=== PATIENT | male | born 1985 | race African-American/Black ===

== ENCOUNTER 2018-10-01 09:26 | Inpatient (IN) | payer MEDICAID ==
[2018-10-01] VITALS (7 sets, daily range): BP systolic 102–146; BP diastolic 40–88
[~2018-10-01] VITALS: Ht 193 cm; Wt 108.9 kg
[2018-10-01] MEDS ORDERED: NKM (09:39)
[2018-10-01] MEDS ORDERED: Ipratropium 0.02% Inh Soln 2.5ml UD HHN ONE (09:45)
[2018-10-01] MEDS ORDERED: Solu-MEDROL 125mg Inj IVP ONE (09:45)
[2018-10-01] MEDS: Albuterol ud Inhalation HHN SCH ×4 (09:52→17:07)
[2018-10-01 10:07] LABS: BASOPHILS % (AUTO) 2.1 % (0.0-2.0); EOSINOPHILS % (AUTO) 0.9 % (0.0-3.0); HEMATOCRIT 40.9 % (42.0-52.0); HEMOGLOBIN 13.8 G/DL (14.2-18.0); LYMPHOCYTES % (AUTO) 7.3 % (20.0-45.0); MEAN CORPUSCULAR VOLUME 89 FL (80-99); NEUTROPHILS % (AUTO) 80.7 % (45.0-75.0); PLATELET COUNT 280 K/UL (150-450); RED CELL DISTRIBUTION WIDTH 10.2 % (11.6-14.8); WHITE BLOOD COUNT 11.4 K/UL (4.8-10.8)
[2018-10-01 10:20] LABS: ANION GAP 8 mmol/L (5-15); BLOOD UREA NITROGEN 14 mg/dL (7-18); CALCIUM 9.2 MG/DL (8.5-10.1); CARBON DIOXIDE 27 MMOL/L (21-32); CHLORIDE 102 MMOL/L (98-107); CREATININE 1.3 MG/DL (0.55-1.30); POTASSIUM 3.7 MMOL/L (3.5-5.1); SODIUM 137 MMOL/L (136-145)
[2018-10-01 10:31] LABS: ALANINE AMINOTRANSFERASE 25 U/L (12-78); ALBUMIN 3.7 G/DL (3.4-5.0); ALBUMIN/GLOBULIN RATIO 0.9 (1.0-2.7); ALKALINE PHOSPHATASE 63 U/L (46-116); ASPARTATE AMINO TRANSFERASE 24 U/L (15-37); BILIRUBIN,TOTAL 0.8 MG/DL (0.2-1.0); CREATINE KINASE 211 U/L (26-308)
--- NOTE | 2018-10-01 10:31 | Diagnostic Imaging Report ---
Indication: Dyspnea Technique: One view of the chest Comparison: none Findings: Lungs and pleural spaces are clear. Heart size is upper limits normal Impression: No acute process
[2018-10-01 11:15] LABS: APPEARANCE,URINE CLEAR; BILIRUBIN, URINE NEGATIVE (NEGATIVE); COLOR,URINE PALE YELLOW; GLUCOSE, URINE (UA) NEGATIVE (NEGATIVE); KETONES,URINE NEGATIVE (NEGATIVE); LEUKOCYTE ESTERASE ,URINE NEGATIVE (NEGATIVE); NITRITE,URINE NEGATIVE (NEGATIVE); PH,URINE 6 (4.5-8.0); PROTEIN,URINE NEGATIVE (NEGATIVE); UROBILINOGEN,URINE NORMAL MG/DL (0.0-1.0)
[2018-10-01] MEDS ORDERED: Albuterol ud Inhalation HHN ONE (12:00)
--- NOTE | 2018-10-01 12:01 | Emergency Room Report ---
History of Present Illness General Chief Complaint: Asthma Source: Patient Present Illness HPI Patient presents with several days of shortness of breath and wheezing. He has a history of asthma. This is not his work at worst attack. He does not have her inhaler at this time. He's felt feverish and has some chest pain but denies any chills or documented fever. He's felt nauseated but is been able to keep food down liquids. He's had prednisone in the past. He's never been intubated. He's coughing up some yellow phlegm. Pain rated 0/10. No rashes, headache, abdominal pain, dysuria, depression, bleeding problems, joint pain, diabetes. Allergies: Coded Allergies: PENICILLINS (Verified Allergy, Unknown, swelling, sob, 10/01/18) Patient History Past Medical History: see triage record Social History: Reports: smoking Social History Narrative works for [employer]/vet Reviewed Nursing Documentation: PMH: Agreed; PSxH: Agreed Nursing Documentation-PMH Past Medical History: No History, Except For Hx Asthma: Yes Review of Systems All Other Systems: negative except mentioned in HPI Physical Exam Vital Signs Date Time Temp Pulse Resp B/P (MAP) Pulse Ox O2 Delivery O2 Flow Rate FiO2 10/01/18 09:34 99.7 97 23 146/88 95 Room Air 10/01/18 10:01 21 10/01/18 10:15 21.0 Sp02 EP Interpretation: reviewed, abnormal - low as interpreted by me General Appearance: well appearing, no apparent distress Head: normocephalic Eyes: bilateral eye normal inspection, bilateral eye PERRL ENT: moist mucus membranes Neck: supple Respiratory: wheezing, expiration, inspiration Cardiovascular #1: regular rate, rhythm Cardiovascular #2: 2+ radial (R) Gastrointestinal: normal inspection, normal bowel sounds, non tender, no mass, non-distended Musculoskeletal: back normal, gait/station normal, normal range of motion Neurologic: alert, oriented x3, grossly normal Psychiatric: mood/affect normal Skin: normal inspection, warm/dry Medical Decision Making Diagnostic Impression: Primary Impression: Status asthmaticus Qualified Codes: J45.52 - Severe persistent asthma with status asthmaticus ER Course Patient presents with wheezing with h/o asthma. DDX: PNA, asthma, bronchitis amongst others. Evaluation with CXR and labs. Treatment with solu-medrol, breathing treatments and IV hydration. Cardiac monitoring. EKG without injury. CXR no infiltrates. Labs with slightly high WBC and low magnesium. Some improvement, but still with hypoxia. Able to rest. Still wheezing and sats 91%. Adding magnesium and repeat breathing tx. Admit tele. Laboratory Tests Test 10/01/18 09:50 10/01/18 11:00 White Blood Count 11.4 K/UL (4.8-10.8) H Red Blood Count 4.60 M/UL (4.70-6.10) L Hemoglobin 13.8 G/DL (14.2-18.0) L Hematocrit 40.9 % (42.0-52.0) L Mean Corpuscular Volume 89 FL (80-99) Mean Corpuscular Hemoglobin 30.0 PG (27.0-31.0) Mean Corpuscular Hemoglobin Concent 33.9 G/DL (32.0-36.0) Red Cell Distribution Width 10.2 % (11.6-14.8) L Platelet Count 280 K/UL (150-450) Mean Platelet Volume 8.1 FL (6.5-10.1) Neutrophils (%) (Auto) 80.7 % (45.0-75.0) H Lymphocytes (%) (Auto) 7.3 % (20.0-45.0) L Monocytes (%) (Auto) 9.0 % (1.0-10.0) Eosinophils (%) (Auto) 0.9 % (0.0-3.0) Basophils (%) (Auto) 2.1 % (0.0-2.0) H Sodium Level 137 MMOL/L (136-145) Potassium Level 3.7 MMOL/L (3.5-5.1) Chloride Level 102 MMOL/L (98-107) Carbon Dioxide Level 27 MMOL/L (21-32) Anion Gap 8 mmol/L (5-15) Blood Urea Nitrogen 14 mg/dL (7-18) Creatinine 1.3 MG/DL (0.55-1.30) Estimate Glomerular Filtration Rate > 60 mL/min (>60) Glucose Level 89 MG/DL (74-106) Calcium Level 9.2 MG/DL (8.5-10.1) Magnesium Level 1.5 MG/DL (1.8-2.4) L Total Bilirubin 0.8 MG/DL (0.2-1.0) Aspartate Amino Transferase (AST) 24 U/L (15-37) Alanine Aminotransferase (ALT) 25 U/L (12-78) Alkaline Phosphatase 63 U/L (46-116) Total Creatine Kinase 211 U/L (26-308) Pro-B-Type Natriuretic Peptide 247 pg/mL (0-125) H Total Protein 7.6 G/DL (6.4-8.2) Albumin 3.7 G/DL (3.4-5.0) Globulin 3.9 g/dL Albumin/Globulin Ratio 0.9 (1.0-2.7) L Urine Color Pale yellow Urine Appearance Clear Urine pH 6 (4.5-8.0) Urine Specific [place] 1.005 (1.005-1.035) Urine Protein Negative (NEGATIVE) Urine Glucose (UA) Negative (NEGATIVE) Urine Ketones Negative (NEGATIVE) Urine Blood Negative (NEGATIVE) Urine Nitrite Negative (NEGATIVE) Urine Bilirubin Negative (NEGATIVE) Urine Urobilinogen Normal MG/DL (0.0-1.0) Urine Leukocyte Esterase Negative (NEGATIVE) Microbiology Date/Time Source Procedure Growth Status 10/01/18 09:50 Nasal Nares Influenza Types A,B Antigen (NGA) - Final Complete Rhythm Strip Diag. Results EP Interpretation: yes Rhythm: no PVC's, no ectopy, other - ST Chest X-Ray Diagnostic Results Chest X-Ray Diagnostic Results : Chest X-Ray Ordered: Yes # of Views/Limited/Complete: 1 View Indication: Shortness of Breath EP Interpretation: Yes Interpretation: no consolidation, no effusion, no pneumothorax Impression: No acute disease Electronically Signed by: Carlos Meadows MD Last Vital Signs Date Time Temp Pulse Resp B/P (MAP) Pulse Ox O2 Delivery O2 Flow Rate FiO2 10/01/18 10:27 99.6 10/01/18 10:15 92 18 92 Room Air 21.0 10/01/18 10:01 21 10/01/18 09:40 146/88 Status: improved Disposition: ADMITTED INPATIENT Condition: Serious Referrals: NOT CHOSEN SWAPNIL/,REFERRING (PCP) Carlos Meadows MD Oct 01, 2018 12:01
[2018-10-01] MEDS ORDERED: Albuterol/Ipratropium 3ml neb HHN PRN (17:00)
[2018-10-01] MEDS: Albuterol/Ipratropium 3ml neb HHN SCH ×2 (20:17→23:00)
--- NOTE | 2018-10-01 20:30 | History and Physical Report ---
DATE OF ADMISSION: 10/01/2018 HISTORY OF PRESENT ILLNESS: The patient comes in for status asthmaticus. It was difficult to control his asthma despite the intervention given by the ER doctor, admitted for sepsis, status asthmaticus. The patient has had childhood asthma. The patient then having shortness of breath and productive cough and wheezing for the past couple of days and . The patient also smokes cigarettes. He is admitted for status asthmaticus. PAST MEDICAL HISTORY: Asthma. PAST SURGICAL HISTORY: None. ALLERGIES: To penicillin. MEDICATIONS: Takes inhaler periodically. SOCIAL HISTORY: Has history of smoking, history of marijuana use. Denies history of alcoholism. REVIEW OF SYSTEMS: HEENT: Denies headaches. PULMONARY: Reports shortness of breath and productive cough for couple of days and wheezing for a couple days. CARDIOVASCULAR: Denies chest pain. GASTROINTESTINAL: Denies nausea, vomiting, or diarrhea. Denies orthopnea. EXTREMITIES: Denies pain in lower extremities. CENTRAL NERVOUS SYSTEM: No change in vision or speech pattern. NEUROLOGIC: Feels weak. PHYSICAL EXAMINATION: VITAL SIGNS: Temperature is 98.8, pulse is 115, blood pressure 141/66. HEENT: PERRLA. NECK: Supple. No lymphadenopathy. CHEST: Bibasilar wheezing. CARDIOVASCULAR: Tachycardic. GASTROINTESTINAL: Soft. Positive bowel sounds. No organomegaly. EXTREMITIES: No edema. Reflexes are equal on both sides. Moves all four extremities. Sensory intact to light touch. LABORATORY DATA: WBC of 11.4, hemoglobin 13.8, and platelets of 280. Sodium 137, potassium 3.7, chloride 102, BUN of 14, creatinine 1.3, and glucose of 89. Chest x-ray is consistent with asthma. ASSESSMENT/PLAN: Status asthmaticus. I have asked Dr. Hill as well as Dr. Carlos Zavaleta to see the patient to make sure the patient does not have also bronchitis and Dr. Lam will be in-charge of the dehydration and IV fluids, electrolyte imbalance. Jaime Davis M.D. DR: Tova JOB#: [id number] CC:
[2018-10-02] VITALS: BP 143/83
[2018-10-02] MEDS: Albuterol/Ipratropium 3ml neb HHN SCH ×7 (01:03→22:55)
[2018-10-02 04:00] VITALS: BP 119/73
[2018-10-02] MEDS: Morphine Sulfate 2mg/ml Inj IVP PRN ×3 (06:38→18:45)
[2018-10-02 08:00] VITALS: BP 114/71
--- NOTE | 2018-10-02 08:07 | Cardiology Progress Note ---
Assessment/Plan Assessment/Plan The patient is seen and examined, full consult report will be dictated shortly. Objective Last 24 Hour Vital Signs Date Time Temp Pulse Resp B/P (MAP) Pulse Ox O2 Delivery O2 Flow Rate FiO2 10/02/18 07:51 89 18 96 Nasal Cannula 2.0 28 10/02/18 07:35 84 18 92 Nasal Cannula 2.0 28 10/02/18 07:34 Nasal Cannula 2.0 28 10/02/18 07:33 92 Nasal Cannula 2.0 28 10/02/18 04:00 98.1 85 22 119/73 (88) 93 10/02/18 04:00 Nasal Cannula 2.0 28 10/02/18 04:00 Nasal Cannula 2.0 28 10/02/18 03:36 93 10/02/18 01:05 88 18 94 Nasal Cannula 2.0 28 10/02/18 01:00 84 18 92 Nasal Cannula 2.0 28 10/02/18 00:00 98.1 85 16 143/83 (103) 92 10/01/18 23:33 Nasal Cannula 2.0 28 10/01/18 23:32 96 Nasal Cannula 2.0 28 10/01/18 21:00 Nasal Cannula 2.0 10/01/18 20:30 72 18 98 Nasal Cannula 2.0 28 10/01/18 20:17 89 18 92 Room Air 21 10/01/18 20:00 98.3 93 16 144/88 (106) 93 10/01/18 20:00 108 10/01/18 17:40 98.1 103 20 123/74 (90) 93 10/01/18 16:00 108 10/01/18 15:31 Nasal Cannula 2.0 10/01/18 14:16 98.8 111 17 125/48 94 Room Air 21.0 21 10/01/18 14:10 98.4 107 25 102/40 (60) 93 10/01/18 12:17 21 10/01/18 12:17 110 17 94 Room Air 21 10/01/18 11:00 98.8 111 18 125/48 94 10/01/18 10:35 95 18 95 Room Air 21 10/01/18 10:30 21 10/01/18 10:30 98.8 115 20 141/66 94 10/01/18 10:27 99.6 10/01/18 10:15 92 18 92 Room Air 21.0 10/01/18 10:01 90 17 Room Air 21 10/01/18 10:01 21 10/01/18 10:01 90 17 98 Room Air 21 10/01/18 10:00 98.5 109 20 131/78 91 10/01/18 09:40 97 23 Room Air 10/01/18 09:40 99.7 98 23 146/88 95 Room Air 10/01/18 09:34 99.7 97 23 146/88 95 Room Air Intake and Output 10/01/18 10/02/18 18:59 06:59 Intake Total 1000 ml 300 ml Balance 1000 ml 300 ml Intake Oral 300 ml IV Total 1000 ml # Voids 1 Laboratory Tests Test 10/01/18 09:50 10/01/18 11:00 10/02/18 06:50 White Blood Count 11.4 K/UL (4.8-10.8) H Red Blood Count 4.60 M/UL (4.70-6.10) L Hemoglobin 13.8 G/DL (14.2-18.0) L Hematocrit 40.9 % (42.0-52.0) L Mean Corpuscular Volume 89 FL (80-99) Mean Corpuscular Hemoglobin 30.0 PG (27.0-31.0) Mean Corpuscular Hemoglobin Concent 33.9 G/DL (32.0-36.0) Red Cell Distribution Width 10.2 % (11.6-14.8) L Platelet Count 280 K/UL (150-450) Mean Platelet Volume 8.1 FL (6.5-10.1) Neutrophils (%) (Auto) 80.7 % (45.0-75.0) H Lymphocytes (%) (Auto) 7.3 % (20.0-45.0) L Monocytes (%) (Auto) 9.0 % (1.0-10.0) Eosinophils (%) (Auto) 0.9 % (0.0-3.0) Basophils (%) (Auto) 2.1 % (0.0-2.0) H Sodium Level 137 MMOL/L (136-145) Potassium Level 3.7 MMOL/L (3.5-5.1) Chloride Level 102 MMOL/L (98-107) Carbon Dioxide Level 27 MMOL/L (21-32) Anion Gap 8 mmol/L (5-15) Blood Urea Nitrogen 14 mg/dL (7-18) Creatinine 1.3 MG/DL (0.55-1.30) Estimat Glomerular Filtration Rate > 60 mL/min (>60) Glucose Level 89 MG/DL (74-106) Calcium Level 9.2 MG/DL (8.5-10.1) Magnesium Level 1.5 MG/DL (1.8-2.4) L Total Bilirubin 0.8 MG/DL (0.2-1.0) Aspartate Amino Transf (AST/SGOT) 24 U/L (15-37) Alanine Aminotransferase (ALT/SGPT) 25 U/L (12-78) Alkaline Phosphatase 63 U/L (46-116) Total Creatine Kinase 211 U/L (26-308) Pro-B-Type Natriuretic Peptide 247 pg/mL (0-125) H Total Protein 7.6 G/DL (6.4-8.2) Albumin 3.7 G/DL (3.4-5.0) Globulin 3.9 g/dL Albumin/Globulin Ratio 0.9 (1.0-2.7) L Urine Color Pale yellow Urine Appearance Clear Urine pH 6 (4.5-8.0) Urine Specific [place] 1.005 (1.005-1.035) Urine Protein Negative (NEGATIVE) Urine Glucose (UA) Negative (NEGATIVE) Urine Ketones Negative (NEGATIVE) Urine Blood Negative (NEGATIVE) Urine Nitrite Negative (NEGATIVE) Urine Bilirubin Negative (NEGATIVE) Urine Urobilinogen Normal MG/DL (0.0-1.0) Urine Leukocyte Esterase Negative (NEGATIVE) Troponin I 0.017 ng/mL (0.000-0.056) Microbiology Date/Time Source Procedure Growth Status 10/01/18 09:50 Nasal Nares Influenza Types A,B Antigen (NGA) - Final Complete Valentin Cristobal MD Oct 02, 2018 08:07
[2018-10-02] MEDS ORDERED: Azithromycin 250mg tab ORAL SCH (09:00)
[2018-10-02] MEDS ORDERED: Guaifenesin/DM 10ml syrup ORAL PRN (09:00)
--- NOTE | 2018-10-02 09:07 | Consultation ---
Consult Note Assessment/Plan DICT #[id number] Rodolfo Hill MD Oct 02, 2018 09:06
[2018-10-02] MEDS: guaiFENesin ER 600mg tab ORAL SCH ×2 (09:16→18:44)
--- NOTE | 2018-10-02 10:56 | Consultation ---
Consult Note Consult Note asked to eval for management of BP and lytes Patient presents with several days of shortness of breath and wheezing. He has a history of asthma. This is not his work at worst attack. He does not have her inhaler at this time. He's felt feverish and has some chest pain but denies any chills or documented fever. He's felt nauseated but is been able to keep food down liquids. He's had prednisone in the past. He's never been intubated. He's coughing up some yellow phlegm. Allergies: Coded Allergies: PENICILLINS (Verified Allergy, Unknown, swelling, sob, 10/01/18) interviewed data reviewed Assessment/Plan Low Mag Asthma Labile HTN Mag IV Urine tox screen per orders Jaime Lam MD Oct 02, 2018 10:56
[2018-10-02 12:00] VITALS: BP 149/95
--- NOTE | 2018-10-02 13:34 | General Progress Note ---
Assessment/Plan Problem List: (1) Status asthmaticus ICD Codes: J45.902 - Unspecified asthma with status asthmaticus SNOMED: 950005630 Status: progressing Assessment/Plan asthma exacerbation is improving not ready for dc still sob and wheezing Subjective ROS Limited/Unobtainable: Yes Respiratory: Reports: shortness of breath, SOB with excertion Allergies: Coded Allergies: PENICILLINS (Verified Allergy, Unknown, swelling, sob, 10/01/18) Objective Last 24 Hour Vital Signs Date Time Temp Pulse Resp B/P (MAP) Pulse Ox O2 Delivery O2 Flow Rate FiO2 10/02/18 12:40 98.1 10/02/18 11:40 76 18 94 Nasal Cannula 2.0 28 10/02/18 08:00 96 10/02/18 07:51 89 18 96 Nasal Cannula 2.0 28 10/02/18 07:35 84 18 92 Nasal Cannula 2.0 28 10/02/18 07:34 Nasal Cannula 2.0 28 10/02/18 07:33 92 Nasal Cannula 2.0 28 10/02/18 04:00 98.1 85 22 119/73 (88) 93 10/02/18 04:00 Nasal Cannula 2.0 28 10/02/18 04:00 Nasal Cannula 2.0 28 10/02/18 03:36 93 10/02/18 01:05 88 18 94 Nasal Cannula 2.0 28 10/02/18 01:00 84 18 92 Nasal Cannula 2.0 28 10/02/18 00:00 98.1 85 16 143/83 (103) 92 10/01/18 23:33 Nasal Cannula 2.0 28 10/01/18 23:32 96 Nasal Cannula 2.0 28 10/01/18 21:00 Nasal Cannula 2.0 10/01/18 20:30 72 18 98 Nasal Cannula 2.0 28 10/01/18 20:17 89 18 92 Room Air 21 10/01/18 20:00 98.3 93 16 144/88 (106) 93 10/01/18 20:00 108 10/01/18 17:40 98.1 103 20 123/74 (90) 93 10/01/18 16:00 108 10/01/18 15:31 Nasal Cannula 2.0 10/01/18 14:16 98.8 111 17 125/48 94 Room Air 21.0 21 10/01/18 14:10 98.4 107 25 102/40 (60) 93 Intake and Output 10/01/18 10/02/18 19:00 07:00 Intake Total 1000 ml 300 ml Balance 1000 ml 300 ml Intake Oral 300 ml IV Total 1000 ml # Voids 1 Laboratory Tests 10/02/18 06:50: Troponin I 0.017 10/02/18 09:15: Troponin I 0.000, D-Dimer 0.35, C-Reactive Protein, Quantitative 6.1H Height (Feet): 6 Height (Inches): 4.00 Weight (Pounds): 240 Neck: supple Cardiovascular: normal rate Abdomen: soft Jaime Davis MD Oct 02, 2018 13:34
[2018-10-02] MEDS: Solu-MEDROL 125mg Inj IVP SCH ×2 (14:09→20:58)
[2018-10-02 16:00] VITALS: BP 141/74
--- NOTE | 2018-10-02 16:15 | Consultation ---
DATE OF CONSULTATION: 10/02/2018 CARDIOLOGY CONSULTATION CONSULTING PHYSICIAN: Valentin Cristobal M.D. REFERRING PHYSICIAN: Jaime Davis M.D. REASON FOR CONSULTATION: Management of tachycardia and dyspnea. HISTORY OF PRESENT ILLNESS: The patient is a very pleasant, 33-year-old gentleman, who presents to the hospital with complaints of shortness of breath and wheezing as well as new onset of fever, chills, and productive cough of yellow sputum. The patient states that his inhaler did not work at this time and he decided to come to the hospital for further evaluation management. He had some nausea associated with upper respiratory symptoms but did not have any chest pain. He has taken prednisone in the past according to the records. PAST MEDICAL HISTORY: History of asthma. At work place, he is exposed to a lot of dust, started new job at [employer]. SOCIAL HISTORY: Denies any tobacco, alcohol, or illicit drug use. High exposure to dust which is new job. PAST SURGICAL HISTORY: None. ALLERGIES: Penicillin. FAMILY HISTORY: No history of premature coronary artery disease or or arrhythmogenic . REVIEW OF SYSTEMS: HEENT: Denies any headache, diplopia, or blurred vision. CONSTITUTIONAL: Complaints of fever, chills, generalized weakness as well as night sweats. CARDIOVASCULAR: Denies any chest pain but positive for shortness breath. Denies any leg edema, orthopnea, PND, syncope, or palpitation. PULMONARY: Positive for shortness of breath as well as productive cough of yellow sputum. No hemoptysis. GASTROINTESTINAL: Positive for nausea but no gastrointestinal bleed, diarrhea, or constipation. GENITOURINARY: Denies any hematuria, dysuria, incontinence. NEUROLOGY: Denies any motor dysfunction, sensory deficit, or altered speech. PHYSICAL EXAMINATION: VITAL SIGNS: Blood pressure is 146/88, respirations 23, pulse of 97, and O2 saturation 95% on room air, temperature 99.7 degrees Fahrenheit. GENERAL: The patient is a very unfortunate 33-year-old gentleman, in mild respiratory distress, appears to be feverish and having some chills. HEENT: Atraumatic and normocephalic. Anicteric. Pupils are equal, round, and reactive to light and accommodation. Extraocular muscle intact. NECK: JVP less than 5 centimeter. No carotid bruit. Carotid upstrokes 2+ bilaterally. CARDIOVASCULAR: Normal S1, S2. Regular rate and rhythm. Tachycardic. No murmurs, gallops, or rubs. LUNGS: Somewhat diminished in both lungs, some scattered rhonchi, prolonged expiratory phase. No crackles. ABDOMEN: Soft, nontender, nondistended. No hepatosplenomegaly. Positive bowel sounds. EXTREMITIES: No evidence of edema, clubbing, or cyanosis. LABORATORY AND DIAGNOSTIC DATA: Sodium is 137, potassium is 3.7, chloride 102, bicarbonate 27, BUN of 14, creatinine 1.3, glucose is 89, and calcium is 9.2. Magnesium is 1.5. Troponin I is 0.017. ProBNP was 248. WBC 11.4, hemoglobin of 13.8, hematocrit 40.9, platelet count is 280 A 12-lead electrocardiogram shows sinus tachycardia rate of [address] and T-wave abnormalities. ASSESSMENT AND PLAN: The patient is an unfortunate 33-year-old gentleman, seen in Cardiology consultation. 1. Dyspnea most likely acute exacerbation of asthma which was triggered by possible viral bronchitis. The treatment of sinus tachycardia is treatment of the underlying etiology. At this time, I would not consider any AV zac agents. The patient will benefit from hydration, nebulizer treatment, and possible prednisone therapy. Pulmonary consultation is required. I would like to order 2D echocardiography for assessment of LV systolic and diastolic function. 2. History of asthma. I would like to thank, , for allowing me to participate in care of this patient. Valentin Cristobal M.D. DR: Dilan JOB#: [id number] CC:
--- NOTE | 2018-10-02 16:17 | Cardiology Report ---
APPROVED REPORT EXAM: Two-dimensional and M-mode echocardiogram with Doppler and color Doppler. INDICATION Ventricular function M-Mode DIMENSIONS IVSd1.4 (0.7-1.1cm)Left Atrium (MM)2.9 (1.6-4.0cm) LVDd5.6 (3.5-5.6cm)Aortic Root3.7 (2.0-3.7cm) PWd1.2 (0.7-1.1cm)Aortic Cusp Exc.2.3 (1.5-2.0cm) LVDs4.1 (2.5-4.0cm) PWs1.6 cm Left ventricular chamber size at upper limits of normal. Normal systolic function and wall motion. Left ventricular ejection fraction estimated to be 55 %. Mild left ventricular hypertrophy. No evidence of pericardial effusion. All other cardiac chamber sizes are within normal limits. Mild focal aortic valve sclerosis with adequate cusp excursion. Mildly thickened mitral valve leaflets with normal excursion. Mild mitral annulus and aortic root calcification. Normal pulmonic valve structure. Normal tricuspid valve structure. IVC at normal size with physiologic collapse. A color flow and spectral Doppler study was performed and revealed: Trace aortic regurgitation. Trace mitral regurgitation. Mitral inflow indicates normal left ventricular diastolic function. Trace to mild tricuspid regurgitation. Tricuspid systolic velocities suggests peak right ventricular systolic pressure of 31 mmHg.
--- NOTE | 2018-10-02 16:30 | Consultation ---
DATE OF CONSULTATION: 10/02/2018 PULMONARY CONSULTATION CONSULTING PHYSICIAN: Rodolfo Hill M.D. REFERRING PHYSICIAN: Jaime Davis M.D. REASON FOR CONSULTATION: Asthma exacerbation. HISTORY OF PRESENT ILLNESS: The patient is a 33-year-old male with a history of childhood asthma which has been quiescent until recently, now presenting with 3 to 4 days of cough, congestion, wheezing, and shortness of breath. Briefly, the patient was in his usual state of health until a week ago when he started having some respiratory symptoms including rhinorrhea, congestion, and cough. He attributed this to URI, which improved with symptomatic treatment only. Over the course of the past few days, he had a recurrence of his cough and wheezing. He also had marked congestion without rhinorrhea. Cough was nonproductive. No nausea, vomiting, diarrhea, or constipation. He had subjective fevers and chills. No urinary complaints. He did not have any [id number] medications or inhalers as he states he has been symptom free for many years. He came into the ER and was presumed to be in status asthmaticus by the emergency room physician. He received Solu-Medrol 125 IV x1, magnesium 2 mg IV x1 and several doses of bronchodilators with minimal relief thus he was admitted for further management. He also complains of some vague anterior chest pain which is nonexertional and nonpleuritic. With respect to his asthma, he was diagnosed in his teenage years. He was hospitalized multiple times, but never intubated. His last hospitalization was greater than 10 years ago and he smokes tobacco and marijuana daily. PAST MEDICAL HISTORY: Asthma. PAST SURGICAL HISTORY: Orthopedic surgery as a child for fracture. ALLERGIES: Penicillin. MEDICATIONS: Prior to admissions medications, none. SOCIAL HISTORY: Born and raised in [place]. 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 He is and has children at home. He also has . He smokes cigarettes and marijuana daily. No other drug or alcohol use. FAMILY HISTORY: Noncontributory. REVIEW OF SYSTEMS: Negative other than history of present illness. PHYSICAL EXAMINATION: VITAL SIGNS: Temperature 98.1, pulse 85, blood pressure 119/73, respiratory rate 22, saturating 93% on room air. GENERAL: He is well-developed and well-nourished male, in no acute distress. Awake, alert, and oriented x3. HEENT: Normocephalic and atraumatic. Oropharynx is clear with moist mucous membranes. NECK: Supple without lymphadenopathy or jugular venous distention. CHEST: Scattered coarse breath sounds and expiratory and expiratory wheezing. HEART: Regular rate and rhythm. ABDOMEN: Soft, nontender, nondistended. EXTREMITIES: No cyanosis, clubbing, or edema. ANCILLARY DATA: Chest x-ray no acute findings. Laboratories sodium 137, potassium 3.7, chloride 102, bicarbonate 27, BUN 14, creatinine 1.3, glucose 89, calcium 9.2, magnesium 1.5. Total bilirubin 0.8. AST 24, ALT 25, and alkaline phosphatase 63. CK 211. Troponin negative. ProBNP 247. Total protein 7.6, albumin 3.7, globulin 3.9. White count 11.4, hemoglobin 13.8, MCV 89, and platelet count 280. Urinalysis negative. ASSESSMENT: The patient is a 33-year-old male current daily smoker with a history of childhood asthma, now presenting with an acute asthma exacerbation in the setting of a URI/bronchitis. PROBLEM LIST: 1. Asthma with acute exacerbation. 2. URI/bronchitis. 3. Leukocytosis secondary to above. 4. Normocytic anemia. 5. Hypomagnesemia. 6. Tobacco use. 7. Marijuana use. TREATMENT PLAN: 1. Continue telemetry. 2. Check D-dimer and troponin and repeat EKG. 3. P.r.n. O2. 4. Bgriaa-lyn-lfcrq and needed DuoNeb treatments. 5. Solu-Medrol 60 IV t.i.d. and taper. 6. Start azithromycin by mouth (today is day #1). 7. Check sputum culture and viral culture. 8. Magnesium 2 grams intravenous x1 now. 9. IV fluid hydration. 10. Mucinex and needed Robitussin. 11. DVT prophylaxis. 12. Encourage ambulation plus heparin subcutaneous. 13. Nicotine patch has been ordered. 14. Encourage abstinence from tobacco and marijuana. The patient should have a thorough pulmonary evaluation as an outpatient including full pulmonary function tests and optimization of his inhaler regimen. Dr. Davis, thank you for allowing me to assist in the care of your patient. If I may be of any assistance, please do not hesitate to ask. Rodolfo Hill M.D. DR: Lela JOB#: [id number] CC:
--- NOTE | 2018-10-02 17:33 | Cardiology Report ---
APPROVED REPORT EKG Measurement Heart [id number] Normal sinus rhythm Normal ECG
--- NOTE | 2018-10-02 17:44 | Cardiology Report ---
APPROVED REPORT EKG Measurement Heart [id number] IN [id number] Sinus tachycardia Otherwise normal ECG
--- NOTE | 2018-10-02 19:45 | Consultation ---
DATE OF CONSULTATION: 10/02/2018 INFECTIOUS DISEASE CONSULTATION CONSULTING PHYSICIAN: Carlos Zavaleta M.D. PRIMARY ATTENDING PHYSICIAN: Jaime Davis M.D. REASON FOR CONSULT: Asthma attack and leukocytosis. HISTORY OF PRESENT ILLNESS: 33 years old male admitted yesterday from home, He was complaining of shortness of breath for couple of days non responding to inhalers that he usually using for asthma.Patient has asthma since childhood.There was contact with other family members that had cold. The patient has upper respiratory symptoms including runny nose as well as coughing and wheezing. PAST MEDICAL HISTORY: Asthma, nicotine abuse, and nicotine dependence. Allergies: Penicillin Medications: Azithromycin,Heparin, Methylprednisone, Magnesium sulfate, Morphine , Albuterol- Ipratropium inhaler SOCIAL HISTORY: . Lives at home. 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 No nausea. No vomiting. No problem passing urine. PHYSICAL EXAMINATION: VITAL SIGNS: Temperature is 98.1, Pulse 99.Blood pressure 119/73 General appearance: no acute distress HEENT: Conjunctival erythema, no oral lesion LUNGS: Prolongation of expiration, Wheezing HEART: Normal rate. Regular. ABDOMEN: Soft and nontender. EXTREMITIES: Has no edema. IMPRESSION: Leukocytosis. The patient seems to have asthma attack, may have underlying chronic obstructive pulmonary disease, has current upper respiratory infection, penicillin allergy, nicotine dependence. RECOMMENDATIONS: Agree with Zithromax. The patient does not want to have to be vaccinated for flu and pneumonia and had no vaccination in the past. The patient will be started on nicotine patch. At the end of my exam, I thank Dr. Davis for involving me in the care of this patient. Carlos Zavaleta M.D. DR: LINNEA JOB#: [id number] CC: [id number]
[2018-10-02 20:00] VITALS: BP 136/70
[2018-10-02] MEDS: Heparin 5000 units/ml inj SUBQ SCH (21:02)
[2018-10-03] VITALS (7 sets, daily range): BP systolic 130–150; BP diastolic 77–98
[2018-10-03] MEDS: Albuterol/Ipratropium 3ml neb HHN SCH ×5 (03:16→23:58)
[2018-10-03] MEDS: Solu-MEDROL 125mg Inj IVP SCH (06:05)
[2018-10-03 07:34] LABS: HEMATOCRIT 44.5 % (42.0-52.0); HEMOGLOBIN 15.1 G/DL (14.2-18.0); MEAN CORPUSCULAR VOLUME 90 FL (80-99); PLATELET COUNT 347 K/UL (150-450); RED BLOOD COUNT 4.92 M/UL (4.70-6.10); RED CELL DISTRIBUTION WIDTH 10.8 % (11.6-14.8); WHITE BLOOD COUNT 16.2 K/UL (4.8-10.8)
[2018-10-03 08:01] LABS: ALANINE AMINOTRANSFERASE 33 U/L (12-78); ALBUMIN 3.8 G/DL (3.4-5.0); ALBUMIN/GLOBULIN RATIO 0.8 (1.0-2.7); ALKALINE PHOSPHATASE 58 U/L (46-116); ANION GAP 15 mmol/L (5-15); ASPARTATE AMINO TRANSFERASE 21 U/L (15-37); BILIRUBIN,TOTAL 0.8 MG/DL (0.2-1.0); BLOOD UREA NITROGEN 15 mg/dL (7-18); CALCIUM 9.7 MG/DL (8.5-10.1); CARBON DIOXIDE 21 MMOL/L (21-32); CHLORIDE 103 MMOL/L (98-107); CHOLESTEROL 212 MG/DL (< 200); CREATININE 1.4 MG/DL (0.55-1.30); GAMMA GLUTAMYL TRANSPEPTIDASE 93 U/L (5-85); HDL CHOLESTEROL 71 MG/DL (40-60); PHOSPHORUS 4.8 MG/DL (2.5-4.9); POTASSIUM 4.1 MMOL/L (3.5-5.1); SODIUM 139 MMOL/L (136-145); TRIGLYCERIDES 49 MG/DL (30-150)
[2018-10-03] MEDS: guaiFENesin ER 600mg tab ORAL SCH ×2 (08:36→18:05)
[2018-10-03] MEDS: Heparin 5000 units/ml inj SUBQ SCH ×2 (08:43→21:34)
[2018-10-03] MEDS ORDERED: Azithromycin 250mg tab ORAL SCH (09:00)
[2018-10-03] MEDS ORDERED: Albuterol/Ipratropium 3ml neb HHN PRN ×2 (10:55→12:00)
[2018-10-03] MEDS ORDERED: Guaifenesin/DM 10ml syrup ORAL PRN (10:55)
[2018-10-03] MEDS ORDERED: Morphine Sulfate 2mg/ml Inj IVP PRN ×2 (10:56→12:00)
[2018-10-03] MEDS ORDERED: Albuterol/Ipratropium 3ml neb HHN SCH (11:00)
--- NOTE | 2018-10-03 12:36 | General Progress Note ---
Assessment/Plan Problem List: (1) Status asthmaticus ICD Codes: J45.902 - Unspecified asthma with status asthmaticus SNOMED: [id number] Qualifiers: Qualified Codes: J45.52 - Severe persistent asthma with status asthmaticus Status: progressing Assessment/Plan asthma exacerbation is improving reviewed chart and labs still sob Subjective Respiratory: Reports: shortness of breath Allergies: Coded Allergies: PENICILLINS (Verified Allergy, Unknown, swelling, sob, 10/01/18) Objective Last 24 Hour Vital Signs Date Time Temp Pulse Resp B/P (MAP) Pulse Ox O2 Delivery O2 Flow Rate FiO2 10/03/18 10:50 97.8 90 20 136/98 (111) 96 10/03/18 09:00 Nasal Cannula 2.0 10/03/18 08:29 74 18 99 Nasal Cannula 2.0 10/03/18 08:22 Nasal Cannula 2.0 10/03/18 08:22 97 Nasal Cannula 2.0 10/03/18 08:22 72 18 97 Nasal Cannula 2.0 10/03/18 08:00 97.1 62 21 149/96 (113) 99 10/03/18 08:00 90 10/03/18 04:00 98.0 72 20 130/77 (94) 96 10/03/18 04:00 95 10/03/18 03:26 70 18 99 Nasal Cannula 2.0 10/03/18 03:16 70 18 97 Nasal Cannula 2.0 10/03/18 00:00 98.2 90 20 137/83 (101) 95 10/02/18 23:03 87 20 98 Nasal Cannula 2.0 10/02/18 22:55 86 18 97 Nasal Cannula 2.0 10/02/18 21:00 Nasal Cannula 2.0 10/02/18 20:00 98.8 94 20 136/70 (92) 91 10/02/18 20:00 87 10/02/18 19:27 91 20 98 Nasal Cannula 2.0 28 10/02/18 19:18 95 Nasal Cannula 2.0 28 10/02/18 19:18 99.1 10/02/18 19:18 Nasal Cannula 2.0 28 10/02/18 19:15 90 18 95 Nasal Cannula 2.0 28 10/02/18 16:00 103 10/02/18 16:00 99.1 10/02/18 16:00 99.1 108 22 141/74 (96) 95 10/02/18 15:27 84 20 95 Nasal Cannula 2.0 28 10/02/18 15:17 88 18 92 Nasal Cannula 2.0 28 Intake and Output 10/02/18 10/03/18 18:59 06:59 # Voids 3 Laboratory Tests 10/03/18 06:26: White Blood Count 16.2H, Red Blood Count 4.92, Hemoglobin 15.1, Hematocrit 44.5 , Mean Corpuscular Volume 90, Mean Corpuscular Hemoglobin 30.6, Mean Corpuscular Hemoglobin Concent 33.8, Red Cell Distribution Width 10.8L, Platelet Count 347, Mean Platelet Volume 7.1, Neutrophils (%) (Auto) , Lymphocytes (%) (Auto) , Monocytes (%) (Auto) , Eosinophils (%) (Auto) , Basophils (%) (Auto) , Differential Total Cells Counted 100, Neutrophils % ( Manual) 96H, Lymphocytes % (Manual) 2L, Monocytes % (Manual) 2, Eosinophils % ( Manual) 0, Basophils % (Manual) 0, Band Neutrophils 0, Platelet Estimate Adequate, Platelet Morphology Normal, Red Blood Cell Morphology Normal, Sodium Level 139, Potassium Level 4.1, Chloride Level 103, Carbon Dioxide Level 21, Anion Gap 15, Blood Urea Nitrogen 15, Creatinine 1.4H, Estimat Glomerular Filtration Rate > 60, Glucose Level 133H, Uric Acid 4.3, Calcium Level 9.7, Phosphorus Level 4.8, Magnesium Level 2.3, Total Bilirubin 0.8, Gamma Glutamyl Transpeptidase 93H, Aspartate Amino Transf (AST/SGOT) 21, Alanine Aminotransferase (ALT/SGPT) 33, Alkaline Phosphatase 58, Total Protein 8.8H, Albumin 3.8, Globulin 5.0, Albumin/Globulin Ratio 0.8L, Triglycerides Level 49, Cholesterol Level 212H, LDL Cholesterol 138H, HDL Cholesterol 71H, Cholesterol/ HDL Ratio 3.0L Height (Feet): 6 Height (Inches): 4.00 Weight (Pounds): 240 Cardiovascular: normal rate Respiratory/Chest: lungs clear Abdomen: soft Jaime Davis MD Oct 03, 2018 12:36
--- NOTE | 2018-10-03 13:02 | Pulmonology Progress Note ---
Assessment/Plan Assessment/Plan ASSESSMENT: The patient is a 33-year-old male current daily smoker with a history of childhood asthma, now presenting with an acute asthma exacerbation in the setting of a URI/bronchitis. PROBLEM LIST: 1. Asthma with acute exacerbation. 2. URI/bronchitis. 3. Leukocytosis secondary to above. 4. Normocytic anemia. 5. Hypomagnesemia. 6. Tobacco use. 7. Marijuana use. 8. Hyperlipidemia TREATMENT PLAN: 1. Optimize pulmonary hygiene/mobilize as tolerated 2. RTC and PRN DUOnebs 3. Decrease Solu-Medrol 40 IV t.i.d. and taper. 4. Continue PO azithromycin (D #2). 5. Mucinex and needed Robitussin. 6. DVT Px: Ambulation + Hep SQ 7. Nicotine patch 8. Encourage abstinence from tobacco and marijuana. 9. Monitor volumes and renal function, mIVF 10. Outpatient pulmonary evaluation and PFT's Subjective Allergies: Coded Allergies: PENICILLINS (Verified Allergy, Unknown, swelling, sob, 10/01/18) Subjective Better AFVSS on RA OOB Less SOB, less cough, less wheezing, no F/C Objective Last 24 Hour Vital Signs Date Time Temp Pulse Resp B/P (MAP) Pulse Ox O2 Delivery O2 Flow Rate FiO2 10/03/18 12:00 98.4 89 19 140/88 (105) 94 10/03/18 10:50 97.8 90 20 136/98 (111) 96 10/03/18 09:00 Nasal Cannula 2.0 10/03/18 08:29 74 18 99 Nasal Cannula 2.0 28 10/03/18 08:22 Nasal Cannula 2.0 28 10/03/18 08:22 97 Nasal Cannula 2.0 28 10/03/18 08:22 72 18 97 Nasal Cannula 2.0 28 10/03/18 08:00 97.1 62 21 149/96 (113) 99 10/03/18 08:00 90 10/03/18 04:00 98.0 72 20 130/77 (94) 96 10/03/18 04:00 95 10/03/18 03:26 70 18 99 Nasal Cannula 2.0 28 10/03/18 03:16 70 18 97 Nasal Cannula 2.0 28 10/03/18 00:00 98.2 90 20 137/83 (101) 95 10/02/18 23:03 87 20 98 Nasal Cannula 2.0 28 10/02/18 22:55 86 18 97 Nasal Cannula 2.0 28 10/02/18 21:00 Nasal Cannula 2.0 10/02/18 20:00 98.8 94 20 136/70 (92) 91 10/02/18 20:00 87 10/02/18 19:27 91 20 98 Nasal Cannula 2.0 28 10/02/18 19:18 95 Nasal Cannula 2.0 28 10/02/18 19:18 99.1 10/02/18 19:18 Nasal Cannula 2.0 28 10/02/18 19:15 90 18 95 Nasal Cannula 2.0 28 10/02/18 16:00 103 10/02/18 16:00 99.1 10/02/18 16:00 99.1 108 22 141/74 (96) 95 10/02/18 15:27 84 20 95 Nasal Cannula 2.0 28 10/02/18 15:17 88 18 92 Nasal Cannula 2.0 Intake and Output 10/02/18 10/03/18 18:59 06:59 # Voids 3 General Appearance: WD/WN, no acute distress HEENT: normocephalic, atraumatic, anicteric, mucous membranes moist Respiratory/Chest: chest wall non-tender, no accessory muscle use, expiratory wheezing Cardiovascular: normal peripheral pulses, normal rate, regular rhythm Abdomen: normal bowel sounds, soft, non tender, no organomegaly, non distended , no mass Extremities: no cyanosis, no clubbing, no edema Microbiology Date/Time Source Procedure Growth Status 10/02/18 16:20 Sputum Gram Stain - Final Resulted 10/02/18 16:20 Sputum Sputum Culture - Preliminary Resulted 10/01/18 09:50 Nasal Nares Influenza Types A,B Antigen (NGA) - Final Complete Laboratory Tests 10/03/18 06:26: White Blood Count 16.2H, Red Blood Count 4.92, Hemoglobin 15.1, Hematocrit 44.5 , Mean Corpuscular Volume 90, Mean Corpuscular Hemoglobin 30.6, Mean Corpuscular Hemoglobin Concent 33.8, Red Cell Distribution Width 10.8L, Platelet Count 347, Mean Platelet Volume 7.1, Neutrophils (%) (Auto) , Lymphocytes (%) (Auto) , Monocytes (%) (Auto) , Eosinophils (%) (Auto) , Basophils (%) (Auto) , Differential Total Cells Counted 100, Neutrophils % ( Manual) 96H, Lymphocytes % (Manual) 2L, Monocytes % (Manual) 2, Eosinophils % ( Manual) 0, Basophils % (Manual) 0, Band Neutrophils 0, Platelet Estimate Adequate, Platelet Morphology Normal, Red Blood Cell Morphology Normal, Sodium Level 139, Potassium Level 4.1, Chloride Level 103, Carbon Dioxide Level 21, Anion Gap 15, Blood Urea Nitrogen 15, Creatinine 1.4H, Estimat Glomerular Filtration Rate > 60, Glucose Level 133H, Uric Acid 4.3, Calcium Level 9.7, Phosphorus Level 4.8, Magnesium Level 2.3, Total Bilirubin 0.8, Gamma Glutamyl Transpeptidase 93H, Aspartate Amino Transf (AST/SGOT) 21, Alanine Aminotransferase (ALT/SGPT) 33, Alkaline Phosphatase 58, Total Protein 8.8H, Albumin 3.8, Globulin 5.0, Albumin/Globulin Ratio 0.8L, Triglycerides Level 49, Cholesterol Level 212H, LDL Cholesterol 138H, HDL Cholesterol 71H, Cholesterol/ HDL Ratio 3.0L Current Medications Medications (Trade) Dose Ordered Sig/Alireza Route PRN Reason Start Time Stop Time Status Last Admin Dose Admin Acetaminophen (Tylenol) 650 mg Q4H PRN ORAL Mild Pain/Temp > 100.5 10/03/18 12:00 10/31/18 11:59 Albuterol/ Ipratropium (Albuterol/ Ipratropium) 3 ml Q4H PRN HHN Shortness of Breath 10/03/18 12:00 10/06/18 11:59 Albuterol/ Ipratropium (Albuterol/ Ipratropium) 3 ml Q4HRT HHN 10/03/18 15:00 10/06/18 18:59 Azithromycin (Zithromax) 250 mg DAILY ORAL 10/04/18 09:00 10/10/18 08:59 Guaifenesin (Mucinex ER) 600 mg TWICE A DAY ORAL 10/03/18 18:00 11/01/18 08:59 Guaifenesin/ Dextromethorphan (Robitussin DM Syrup) 10 ml Q4H PRN ORAL For Cough 10/03/18 12:00 11/01/18 11:59 Heparin Sodium (Porcine) (Heparin 5000 units/ml) 5,000 units EVERY 12 HOURS SUBQ 10/03/18 21:00 11/01/18 20:59 Methylprednisolone Sodium Succinate (Solu-MEDROL) 60 mg EVERY 8 HOURS IVP 10/03/18 14:00 11/01/18 13:59 Morphine Sulfate (Morphine Sulfate) 2 mg Q4H PRN IVP PAIN 4-10 10/03/18 12:00 10/10/18 11:59 Pantoprazole (Protonix) 40 mg DAILY ORAL 10/04/18 09:00 11/02/18 08:59 Rodolfo Hill MD Oct 03, 2018 13:02
--- NOTE | 2018-10-03 13:02 | Infectious Diseases Prog Note ---
Assessment/Plan Assessment/Plan A; Asthma attack Upper respiratory infection Leukocytosis Fever resolving Nicotine dependence P; Continue Zithromax Subjective ROS Limited/Unobtainable: No Constitutional: Reports: fever, other - yesterday HEENT: Reports: coryza, other - decreased Respiratory: Reports: shortness of breath, other - decreased Gastrointestinal/Abdominal: Reports: no symptoms Genitourinary: Reports: no symptoms Musculoskeletal: Reports: no symptoms Allergies: Coded Allergies: PENICILLINS (Verified Allergy, Unknown, swelling, sob, 10/01/18) Objective Vital Signs Last 24 Hour Vital Signs Date Time Temp Pulse Resp B/P (MAP) Pulse Ox O2 Delivery O2 Flow Rate FiO2 10/03/18 12:00 98.4 89 19 140/88 (105) 94 10/03/18 10:50 97.8 90 20 136/98 (111) 96 10/03/18 09:00 Nasal Cannula 2.0 10/03/18 08:29 74 18 99 Nasal Cannula 2.0 10/03/18 08:22 Nasal Cannula 2.0 28 10/03/18 08:22 97 Nasal Cannula 2.0 28 10/03/18 08:22 72 18 97 Nasal Cannula 2.0 10/03/18 08:00 97.1 62 21 149/96 (113) 99 10/03/18 08:00 90 10/03/18 04:00 98.0 72 20 130/77 (94) 96 10/03/18 04:00 95 10/03/18 03:26 70 18 99 Nasal Cannula 2.0 10/03/18 03:16 70 18 97 Nasal Cannula 2.0 10/03/18 00:00 98.2 90 20 137/83 (101) 95 10/02/18 23:03 87 20 98 Nasal Cannula 2.0 28 10/02/18 22:55 86 18 97 Nasal Cannula 2.0 28 10/02/18 21:00 Nasal Cannula 2.0 10/02/18 20:00 98.8 94 20 136/70 (92) 91 10/02/18 20:00 87 10/02/18 19:27 91 20 98 Nasal Cannula 2.0 28 10/02/18 19:18 95 Nasal Cannula 2.0 28 10/02/18 19:18 99.1 10/02/18 19:18 Nasal Cannula 2.0 28 10/02/18 19:15 90 18 95 Nasal Cannula 2.0 28 10/02/18 16:00 103 10/02/18 16:00 99.1 10/02/18 16:00 99.1 108 22 141/74 (96) 95 10/02/18 15:27 84 20 95 Nasal Cannula 2.0 28 10/02/18 15:17 88 18 92 Nasal Cannula 2.0 28 Height (Feet): 6 Height (Inches): 4.00 Weight (Pounds): 240 General Appearance: no acute distress HEENT: mucous membranes moist Respiratory/Chest: expiratory wheezing Cardiovascular: normal rate Abdomen: soft, non tender Extremities: no edema Neurologic/Psychiatric: alert, oriented x 3, responsive Microbiology Date/Time Source Procedure Growth Status 10/02/18 16:20 Sputum Gram Stain - Final Resulted 10/02/18 16:20 Sputum Sputum Culture - Preliminary Resulted 10/01/18 09:50 Nasal Nares Influenza Types A,B Antigen (NGA) - Final Complete Laboratory Tests Test 10/03/18 06:26 White Blood Count 16.2 K/UL (4.8-10.8) H Red Blood Count 4.92 M/UL (4.70-6.10) Hemoglobin 15.1 G/DL (14.2-18.0) Hematocrit 44.5 % (42.0-52.0) Mean Corpuscular Volume 90 FL (80-99) Mean Corpuscular Hemoglobin 30.6 PG (27.0-31.0) Mean Corpuscular Hemoglobin Concent 33.8 G/DL (32.0-36.0) Red Cell Distribution Width 10.8 % (11.6-14.8) L Platelet Count 347 K/UL (150-450) Mean Platelet Volume 7.1 FL (6.5-10.1) Neutrophils (%) (Auto) % (45.0-75.0) Lymphocytes (%) (Auto) % (20.0-45.0) Monocytes (%) (Auto) % (1.0-10.0) Eosinophils (%) (Auto) % (0.0-3.0) Basophils (%) (Auto) % (0.0-2.0) Differential Total Cells Counted 100 Neutrophils % (Manual) 96 % (45-75) H Lymphocytes % (Manual) 2 % (20-45) L Monocytes % (Manual) 2 % (1-10) Eosinophils % (Manual) 0 % (0-3) Basophils % (Manual) 0 % (0-2) Band Neutrophils 0 % (0-8) Platelet Estimate Adequate Platelet Morphology Normal Red Blood Cell Morphology Normal Sodium Level 139 MMOL/L (136-145) Potassium Level 4.1 MMOL/L (3.5-5.1) Chloride Level 103 MMOL/L (98-107) Carbon Dioxide Level 21 MMOL/L (21-32) Anion Gap 15 mmol/L (5-15) Blood Urea Nitrogen 15 mg/dL (7-18) Creatinine 1.4 MG/DL (0.55-1.30) H Estimat Glomerular Filtration Rate > 60 mL/min (>60) Glucose Level 133 MG/DL (74-106) H Uric Acid 4.3 MG/DL (2.6-7.2) Calcium Level 9.7 MG/DL (8.5-10.1) Phosphorus Level 4.8 MG/DL (2.5-4.9) Magnesium Level 2.3 MG/DL (1.8-2.4) Total Bilirubin 0.8 MG/DL (0.2-1.0) Gamma Glutamyl Transpeptidase 93 U/L (5-85) H Aspartate Amino Transf (AST/SGOT) 21 U/L (15-37) Alanine Aminotransferase (ALT/SGPT) 33 U/L (12-78) Alkaline Phosphatase 58 U/L (46-116) Total Protein 8.8 G/DL (6.4-8.2) H Albumin 3.8 G/DL (3.4-5.0) Globulin 5.0 g/dL Albumin/Globulin Ratio 0.8 (1.0-2.7) L Triglycerides Level 49 MG/DL (30-150) Cholesterol Level 212 MG/DL (< 200) H LDL Cholesterol 138 mg/dL (<100) H HDL Cholesterol 71 MG/DL (40-60) H Cholesterol/HDL Ratio 3.0 (3.3-4.4) L Current Medications Medications (Trade) Dose Ordered Sig/Alireza Route PRN Reason Start Time Stop Time Status Last Admin Dose Admin Acetaminophen (Tylenol) 650 mg Q4H PRN ORAL Mild Pain/Temp > 100.5 10/03/18 12:00 10/31/18 11:59 Albuterol/ Ipratropium (Albuterol/ Ipratropium) 3 ml Q4H PRN HHN Shortness of Breath 10/03/18 12:00 10/06/18 11:59 Albuterol/ Ipratropium (Albuterol/ Ipratropium) 3 ml Q4HRT HHN 10/03/18 15:00 10/06/18 18:59 Azithromycin (Zithromax) 250 mg DAILY ORAL 10/04/18 09:00 10/10/18 08:59 Guaifenesin (Mucinex ER) 600 mg TWICE A DAY ORAL 10/03/18 18:00 11/01/18 08:59 Guaifenesin/ Dextromethorphan (Robitussin DM Syrup) 10 ml Q4H PRN ORAL For Cough 10/03/18 12:00 11/01/18 11:59 Heparin Sodium (Porcine) (Heparin 5000 units/ml) 5,000 units EVERY 12 HOURS SUBQ 10/03/18 21:00 11/01/18 20:59 Methylprednisolone Sodium Succinate (Solu-MEDROL) 60 mg EVERY 8 HOURS IVP 10/03/18 14:00 11/01/18 13:59 Morphine Sulfate (Morphine Sulfate) 2 mg Q4H PRN IVP PAIN 4-10 10/03/18 12:00 10/10/18 11:59 Pantoprazole (Protonix) 40 mg DAILY ORAL 10/04/18 09:00 11/02/18 08:59 Carlos Zavaleta MD Oct 03, 2018 13:02
[2018-10-03] MEDS: Solu-MEDROL 40mg Inj IVP SCH ×2 (13:48→21:30)
[2018-10-03] MEDS: Guaifenesin/DM 10ml syrup ORAL PRN ×2 (13:58→22:42)
[2018-10-03] MEDS ORDERED: Solu-MEDROL 125mg Inj IVP SCH ×2 (14:00)
--- NOTE | 2018-10-03 14:52 | Nephrology Progress Note ---
Assessment/Plan Problem List: (1) Status asthmaticus (2) Hypomagnesemia Assessment Low Mag Asthma Labile HTN Plan Mag IV given Urine tox screen pending per orders Subjective ROS Limited/Unobtainable: No Objective Objective Last 24 Hour Vital Signs Date Time Temp Pulse Resp B/P (MAP) Pulse Ox O2 Delivery O2 Flow Rate FiO2 10/03/18 12:00 98.4 89 19 140/88 (105) 94 10/03/18 10:50 97.8 90 20 136/98 (111) 96 10/03/18 09:00 Nasal Cannula 2.0 10/03/18 08:29 74 18 99 Nasal Cannula 2.0 28 10/03/18 08:22 Nasal Cannula 2.0 28 10/03/18 08:22 97 Nasal Cannula 2.0 28 10/03/18 08:22 72 18 97 Nasal Cannula 2.0 28 10/03/18 08:00 97.1 62 21 149/96 (113) 99 10/03/18 08:00 90 10/03/18 04:00 98.0 72 20 130/77 (94) 96 10/03/18 04:00 95 10/03/18 03:26 70 18 99 Nasal Cannula 2.0 28 10/03/18 03:16 70 18 97 Nasal Cannula 2.0 28 10/03/18 00:00 98.2 90 20 137/83 (101) 95 10/02/18 23:03 87 20 98 Nasal Cannula 2.0 28 10/02/18 22:55 86 18 97 Nasal Cannula 2.0 28 10/02/18 21:00 Nasal Cannula 2.0 10/02/18 20:00 98.8 94 20 136/70 (92) 91 10/02/18 20:00 87 10/02/18 19:27 91 20 98 Nasal Cannula 2.0 28 10/02/18 19:18 95 Nasal Cannula 2.0 28 10/02/18 19:18 99.1 10/02/18 19:18 Nasal Cannula 2.0 28 10/02/18 19:15 90 18 95 Nasal Cannula 2.0 28 10/02/18 16:00 103 10/02/18 16:00 99.1 10/02/18 16:00 99.1 108 22 141/74 (96) 95 10/02/18 15:27 84 20 95 Nasal Cannula 2.0 28 10/02/18 15:17 88 18 92 Nasal Cannula 2.0 28 Intake and Output 10/02/18 10/03/18 18:59 06:59 # Voids 3 Laboratory Tests 10/03/18 06:26: White Blood Count 16.2H, Red Blood Count 4.92, Hemoglobin 15.1, Hematocrit 44.5 , Mean Corpuscular Volume 90, Mean Corpuscular Hemoglobin 30.6, Mean Corpuscular Hemoglobin Concent 33.8, Red Cell Distribution Width 10.8L, Platelet Count 347, Mean Platelet Volume 7.1, Neutrophils (%) (Auto) , Lymphocytes (%) (Auto) , Monocytes (%) (Auto) , Eosinophils (%) (Auto) , Basophils (%) (Auto) , Differential Total Cells Counted 100, Neutrophils % ( Manual) 96H, Lymphocytes % (Manual) 2L, Monocytes % (Manual) 2, Eosinophils % ( Manual) 0, Basophils % (Manual) 0, Band Neutrophils 0, Platelet Estimate Adequate, Platelet Morphology Normal, Red Blood Cell Morphology Normal, Sodium Level 139, Potassium Level 4.1, Chloride Level 103, Carbon Dioxide Level 21, Anion Gap 15, Blood Urea Nitrogen 15, Creatinine 1.4H, Estimat Glomerular Filtration Rate > 60, Glucose Level 133H, Uric Acid 4.3, Calcium Level 9.7, Phosphorus Level 4.8, Magnesium Level 2.3, Total Bilirubin 0.8, Gamma Glutamyl Transpeptidase 93H, Aspartate Amino Transf (AST/SGOT) 21, Alanine Aminotransferase (ALT/SGPT) 33, Alkaline Phosphatase 58, Total Protein 8.8H, Albumin 3.8, Globulin 5.0, Albumin/Globulin Ratio 0.8L, Triglycerides Level 49, Cholesterol Level 212H, LDL Cholesterol 138H, HDL Cholesterol 71H, Cholesterol/ HDL Ratio 3.0L Height (Feet): 6 Height (Inches): 4.00 Weight (Pounds): 240 Respiratory/Chest: decreased breath sounds, rhonchi - bilaterally Jaime Lam MD Oct 03, 2018 14:52
[2018-10-03] MEDS ORDERED: guaiFENesin ER 600mg tab ORAL SCH (18:00)
[2018-10-03] MEDS ORDERED: Heparin 5000 units/ml inj SUBQ SCH (21:00)
--- NOTE | 2018-10-03 23:53 | Cardiology Progress Note ---
Assessment/Plan Assessment/Plan 1. Dyspnea most likely acute exacerbation of asthma which was triggered by possible viral bronchitis, continue hydration, nebulizer treatment, and IV steroids, Pulmonary follow up. 2D echo reveals normal LV systolic and diastolic function, LVEF at 60%. 2. Sinus tachycardia, resolved with treatment of the underlying asthma exacerbation, no need for AV azc agents. 3. Renal failure, ? CKD. 4. Dyslipidemia, may need statin in view of CKD. Subjective Subjective Transferred to the non-telemetry bed. No cardiac events reported. Objective Last 24 Hour Vital Signs Date Time Temp Pulse Resp B/P (MAP) Pulse Ox O2 Delivery O2 Flow Rate FiO2 10/03/18 21:14 87 20 98 Room Air 21 10/03/18 21:00 Room Air 10/03/18 20:59 95 20 94 Room Air 10/03/18 20:59 Room Air 10/03/18 20:58 94 Room Air 10/03/18 20:00 97.7 84 19 143/97 (112) 97 10/03/18 16:04 81 18 99 Room Air 10/03/18 16:00 98.1 90 20 150/81 (104) 95 10/03/18 15:55 78 18 98 Room Air 10/03/18 12:00 98.4 89 19 140/88 (105) 94 10/03/18 10:50 97.8 90 20 136/98 (111) 96 10/03/18 09:00 Nasal Cannula 2.0 10/03/18 08:29 74 18 99 Nasal Cannula 2.0 10/03/18 08:22 Nasal Cannula 2.0 10/03/18 08:22 97 Nasal Cannula 2.0 10/03/18 08:22 72 18 97 Nasal Cannula 2.0 10/03/18 08:00 97.1 62 21 149/96 (113) 99 10/03/18 08:00 90 10/03/18 04:00 98.0 72 20 130/77 (94) 96 10/03/18 04:00 95 10/03/18 03:26 70 18 99 Nasal Cannula 2.0 28 10/03/18 03:16 70 18 97 Nasal Cannula 2.0 10/03/18 00:00 98.2 90 20 137/83 (101) 95 Intake and Output 10/02/18 10/03/18 19:00 07:00 # Voids 3 2D Echo: LVEF 55%, Mild LVH, RVSP 31 mmHg. Laboratory Tests Test 10/03/18 06:26 White Blood Count 16.2 K/UL (4.8-10.8) H Red Blood Count 4.92 M/UL (4.70-6.10) Hemoglobin 15.1 G/DL (14.2-18.0) Hematocrit 44.5 % (42.0-52.0) Mean Corpuscular Volume 90 FL (80-99) Mean Corpuscular Hemoglobin 30.6 PG (27.0-31.0) Mean Corpuscular Hemoglobin Concent 33.8 G/DL (32.0-36.0) Red Cell Distribution Width 10.8 % (11.6-14.8) L Platelet Count 347 K/UL (150-450) Mean Platelet Volume 7.1 FL (6.5-10.1) Neutrophils (%) (Auto) % (45.0-75.0) Lymphocytes (%) (Auto) % (20.0-45.0) Monocytes (%) (Auto) % (1.0-10.0) Eosinophils (%) (Auto) % (0.0-3.0) Basophils (%) (Auto) % (0.0-2.0) Differential Total Cells Counted 100 Neutrophils % (Manual) 96 % (45-75) H Lymphocytes % (Manual) 2 % (20-45) L Monocytes % (Manual) 2 % (1-10) Eosinophils % (Manual) 0 % (0-3) Basophils % (Manual) 0 % (0-2) Band Neutrophils 0 % (0-8) Platelet Estimate Adequate Platelet Morphology Normal Red Blood Cell Morphology Normal Sodium Level 139 MMOL/L (136-145) Potassium Level 4.1 MMOL/L (3.5-5.1) Chloride Level 103 MMOL/L (98-107) Carbon Dioxide Level 21 MMOL/L (21-32) Anion Gap 15 mmol/L (5-15) Blood Urea Nitrogen 15 mg/dL (7-18) Creatinine 1.4 MG/DL (0.55-1.30) H Estimat Glomerular Filtration Rate > 60 mL/min (>60) Glucose Level 133 MG/DL (74-106) H Uric Acid 4.3 MG/DL (2.6-7.2) Calcium Level 9.7 MG/DL (8.5-10.1) Phosphorus Level 4.8 MG/DL (2.5-4.9) Magnesium Level 2.3 MG/DL (1.8-2.4) Total Bilirubin 0.8 MG/DL (0.2-1.0) Gamma Glutamyl Transpeptidase 93 U/L (5-85) H Aspartate Amino Transf (AST/SGOT) 21 U/L (15-37) Alanine Aminotransferase (ALT/SGPT) 33 U/L (12-78) Alkaline Phosphatase 58 U/L (46-116) Total Protein 8.8 G/DL (6.4-8.2) H Albumin 3.8 G/DL (3.4-5.0) Globulin 5.0 g/dL Albumin/Globulin Ratio 0.8 (1.0-2.7) L Triglycerides Level 49 MG/DL (30-150) Cholesterol Level 212 MG/DL (< 200) H LDL Cholesterol 138 mg/dL (<100) H HDL Cholesterol 71 MG/DL (40-60) H Cholesterol/HDL Ratio 3.0 (3.3-4.4) L Microbiology Date/Time Source Procedure Growth Status 10/02/18 16:20 Sputum Gram Stain - Final Resulted 10/02/18 16:20 Sputum Sputum Culture - Preliminary Resulted 10/01/18 09:50 Nasal Nares Influenza Types A,B Antigen (NGA) - Final Complete Objective HEENT: Atraumatic and normocephalic. Anicteric. Pupils are equal, round, and reactive to light and accommodation. Extraocular muscle intact. NECK: JVP less than 5 centimeter. No carotid bruit. Carotid upstrokes 2+ bilaterally. CARDIOVASCULAR: Normal S1, S2. Regular rate and rhythm. No murmurs, gallops, or rubs. LUNGS: Somewhat diminished in both lungs, some scattered rhonchi, prolonged expiratory phase. No crackles. ABDOMEN: Soft, nontender, nondistended. No hepatosplenomegaly. Positive bowel sounds. EXTREMITIES: No evidence of edema, clubbing, or cyanosis. Valentin Cristobal MD Oct 03, 2018 23:53
[2018-10-04] VITALS: BP 139/98
[2018-10-04] MEDS: Albuterol/Ipratropium 3ml neb HHN SCH ×4 (02:54→14:27)
[2018-10-04 04:00] VITALS: BP 148/96
[2018-10-04] MEDS: Solu-MEDROL 40mg Inj IVP SCH ×3 (05:47→14:00)
[2018-10-04 08:00] VITALS: BP 140/88
[2018-10-04] MEDS: guaiFENesin ER 600mg tab ORAL SCH ×2 (08:45→18:00)
[2018-10-04] MEDS: Heparin 5000 units/ml inj SUBQ SCH (08:47)
[2018-10-04] MEDS ORDERED: Azithromycin 250mg tab ORAL SCH ×2 (09:00)
[2018-10-04 12:00] VITALS: BP 144/86
--- NOTE | 2018-10-04 13:55 | Nephrology Progress Note ---
Assessment/Plan Problem List: (1) Status asthmaticus (2) Hypomagnesemia (3) Acute renal failure Assessment Cr julia Low Mag Asthma Labile HTN Plan Mag IV given Urine tox screen pending per orders recheck labs in am Subjective ROS Limited/Unobtainable: No Objective Objective Last 24 Hour Vital Signs Date Time Temp Pulse Resp B/P (MAP) Pulse Ox O2 Delivery O2 Flow Rate FiO2 10/04/18 12:17 82 18 97 Nasal Cannula 2.0 28 10/04/18 12:08 94 20 94 Nasal Cannula 2.0 28 10/04/18 12:00 97.8 87 20 144/86 (105) 93 10/04/18 08:28 88 20 95 Nasal Cannula 2.0 28 10/04/18 08:18 94 Nasal Cannula 2.0 28 10/04/18 08:18 74 16 94 Nasal Cannula 2.0 28 10/04/18 08:18 Nasal Cannula 2.0 28 10/04/18 08:00 98.0 80 20 140/88 (105) 99 10/04/18 04:00 97.5 81 19 148/96 (113) 98 10/04/18 03:02 83 20 98 Nasal Cannula 2.0 28 10/04/18 02:54 75 20 96 Nasal Cannula 2.0 28 10/04/18 00:13 86 20 98 Nasal Cannula 2.0 28 10/04/18 00:00 97.8 82 18 139/98 (112) 98 10/03/18 23:58 76 20 97 Nasal Cannula 2.0 28 10/03/18 21:14 87 20 98 Room Air 21 10/03/18 21:00 Room Air 10/03/18 20:59 95 20 94 Room Air 21 10/03/18 20:59 Room Air 21 10/03/18 20:58 94 Room Air 21 10/03/18 20:00 97.7 84 19 143/97 (112) 97 10/03/18 16:04 81 18 99 Room Air 21 10/03/18 16:00 98.1 90 20 150/81 (104) 95 10/03/18 15:55 78 18 98 Room Air 21 Intake and Output 10/03/18 10/04/18 18:59 06:59 Intake Total 474 ml 100 ml Balance 474 ml 100 ml Intake Oral 474 ml 100 ml # Voids 1 Height (Feet): 6 Height (Inches): 4.00 Weight (Pounds): 240 General Appearance: no apparent distress Cardiovascular: normal rate Respiratory/Chest: decreased breath sounds Jaime Lam MD Oct 04, 2018 13:55
--- NOTE | 2018-10-04 14:50 | Pulmonology Progress Note ---
Assessment/Plan Assessment/Plan ASSESSMENT: The patient is a 33-year-old male current daily smoker with a history of childhood asthma, now presenting with an acute asthma exacerbation in the setting of a URI/bronchitis. PROBLEM LIST: 1. Asthma with acute exacerbation. 2. URI/bronchitis. 3. Leukocytosis secondary to above. 4. Normocytic anemia. 5. Hypomagnesemia. 6. Tobacco use. 7. Marijuana use. 8. Hyperlipidemia TREATMENT PLAN: 1. Optimize pulmonary hygiene/mobilize as tolerated 2. RTC and PRN DUOnebs 3. D/C SM ---> Pred taper 4. Continue PO azithromycin (D #3). 5. Mucinex and needed Robitussin. 6. DVT Px: Ambulation + Hep SQ 7. Nicotine patch 8. Encourage abstinence from tobacco and marijuana. 9. Monitor volumes and renal function, mIVF 10. Outpatient pulmonary evaluation and PFT's 11. Started on Breo and PRN Ventolin on discharge, F/U with me 1-2 weeks, Pred taper written & home HHN ordered Subjective Allergies: Coded Allergies: PENICILLINS (Verified Allergy, Unknown, swelling, sob, 10/01/18) Subjective GIDEON AFVSS on RA OOB Less SOB, less cough, less wheezing, no F/C Objective Last 24 Hour Vital Signs Date Time Temp Pulse Resp B/P (MAP) Pulse Ox O2 Delivery O2 Flow Rate FiO2 10/04/18 14:36 73 20 98 Nasal Cannula 2.0 28 10/04/18 14:27 89 18 93 Room Air 2.0 21 10/04/18 12:17 82 18 97 Nasal Cannula 2.0 28 10/04/18 12:08 94 20 94 Nasal Cannula 2.0 28 10/04/18 12:00 97.8 87 20 144/86 (105) 93 10/04/18 08:28 88 20 95 Nasal Cannula 2.0 28 10/04/18 08:18 94 Nasal Cannula 2.0 28 10/04/18 08:18 74 16 94 Nasal Cannula 2.0 28 10/04/18 08:18 Nasal Cannula 2.0 28 10/04/18 08:00 98.0 80 20 140/88 (105) 99 10/04/18 04:00 97.5 81 19 148/96 (113) 98 10/04/18 03:02 83 20 98 Nasal Cannula 2.0 28 /30/18 02:54 75 20 96 Nasal Cannula 2.0 28 10/04/18 00:13 86 20 98 Nasal Cannula 2.0 10/04/18 00:00 97.8 82 18 139/98 (112) 98 10/03/18 23:58 76 20 97 Nasal Cannula 2.0 10/03/18 21:14 87 20 98 Room Air 21 10/03/18 21:00 Room Air 10/03/18 20:59 95 20 94 Room Air 21 10/03/18 20:59 Room Air 21 10/03/18 20:58 94 Room Air 21 10/03/18 20:00 97.7 84 19 143/97 (112) 97 10/03/18 16:04 81 18 99 Room Air 21 10/03/18 16:00 98.1 90 20 150/81 (104) 95 10/03/18 15:55 78 18 98 Room Air 21 Intake and Output 10/03/18 10/04/18 18:59 06:59 Intake Total 474 ml 100 ml Balance 474 ml 100 ml Intake Oral 474 ml 100 ml # Voids 1 General Appearance: WD/WN, no acute distress HEENT: normocephalic, atraumatic, anicteric, mucous membranes moist Respiratory/Chest: chest wall non-tender, lungs clear, normal breath sounds, no respiratory distress, no accessory muscle use Cardiovascular: normal peripheral pulses, normal rate, regular rhythm Abdomen: normal bowel sounds, soft, non tender, no organomegaly, non distended Extremities: no cyanosis, no clubbing, no edema Microbiology Date/Time Source Procedure Growth Status 10/02/18 16:20 Sputum Gram Stain - Final Complete 10/02/18 16:20 Sputum Sputum Culture - Final NORMAL UPPER RESPIRATORY ALLISON PRESENT Complete Current Medications Medications (Trade) Dose Ordered Sig/Alireza Route PRN Reason Start Time Stop Time Status Last Admin Dose Admin Acetaminophen (Tylenol) 650 mg Q4H PRN ORAL Mild Pain/Temp > 100.5 10/03/18 12:00 10/31/18 11:59 Albuterol/ Ipratropium (Albuterol/ Ipratropium) 3 ml Q4H PRN HHN Shortness of Breath 10/03/18 12:00 10/06/18 11:59 Albuterol/ Ipratropium (Albuterol/ Ipratropium) 3 ml Q4HRT HHN 10/03/18 15:00 10/06/18 18:59 10/04/18 14:27 Azithromycin (Zithromax) 250 mg DAILY ORAL 10/04/18 09:00 10/10/18 08:59 10/04/18 08:45 Guaifenesin (Mucinex ER) 600 mg TWICE A DAY ORAL 10/03/18 18:00 11/01/18 08:59 10/04/18 08:45 Guaifenesin/ Dextromethorphan (Robitussin DM Syrup) 10 ml Q4H PRN ORAL For Cough 10/03/18 12:00 11/01/18 11:59 10/03/18 22:42 Heparin Sodium (Porcine) (Heparin 5000 units/ml) 5,000 units EVERY 12 HOURS SUBQ 10/03/18 21:00 11/01/18 20:59 10/04/18 08:47 Methylprednisolone Sodium Succinate (Solu-MEDROL) 40 mg EVERY 8 HOURS IVP 10/03/18 14:00 11/01/18 13:59 10/04/18 05:47 Morphine Sulfate (Morphine Sulfate) 2 mg Q4H PRN IVP PAIN 4-10 10/03/18 12:00 10/10/18 11:59 Nicotine (Nicoderm) 1 patch Q24H TDERMAL 10/03/18 13:00 11/02/18 12:59 10/04/18 13:38 Pantoprazole (Protonix) 40 mg DAILY ORAL 10/04/18 09:00 11/02/18 08:59 10/04/18 08:45 Rodolfo Hill MD Oct 04, 2018 14:50
[2018-10-04 16:00] VITALS: BP 138/90
--- NOTE | 2018-10-04 22:32 | Cardiology Progress Note ---
Assessment/Plan Assessment/Plan 1. Dyspnea most likely acute exacerbation of asthma which was triggered by possible viral bronchitis, continue hydration, nebulizer treatment, and IV steroids, Pulmonary follow up. 2D echo reveals normal LV systolic and diastolic function, LVEF at 60%. 2. Sinus tachycardia, resolved with treatment of the underlying asthma exacerbation, no need for AV zac agents. 3. Renal failure, ? CKD. 4. Dyslipidemia, may need statin in view of CKD. Subjective Subjective Denies chest pain or SOB. On NC oxygen. Objective Last 24 Hour Vital Signs Date Time Temp Pulse Resp B/P (MAP) Pulse Ox O2 Delivery O2 Flow Rate FiO2 10/04/18 16:00 98.0 79 20 138/90 (106) 98 10/04/18 14:36 73 20 98 Nasal Cannula 2.0 28 10/04/18 14:27 89 18 93 Room Air 2.0 21 10/04/18 12:17 82 18 97 Nasal Cannula 2.0 28 10/04/18 12:08 94 20 94 Nasal Cannula 2.0 28 10/04/18 12:00 97.8 87 20 144/86 (105) 93 10/04/18 09:00 Room Air 10/04/18 08:28 88 20 95 Nasal Cannula 2.0 28 10/04/18 08:18 94 Nasal Cannula 2.0 28 10/04/18 08:18 74 16 94 Nasal Cannula 2.0 28 10/04/18 08:18 Nasal Cannula 2.0 28 10/04/18 08:00 98.0 80 20 140/88 (105) 99 10/04/18 04:00 97.5 81 19 148/96 (113) 98 10/04/18 03:02 83 20 98 Nasal Cannula 2.0 28 10/04/18 02:54 75 20 96 Nasal Cannula 2.0 28 10/04/18 00:13 86 20 98 Nasal Cannula 2.0 28 10/04/18 00:00 97.8 82 18 139/98 (112) 98 10/03/18 23:58 76 20 97 Nasal Cannula 2.0 28 Intake and Output 10/03/18 10/04/18 19:00 07:00 Intake Total 474 ml 100 ml Balance 474 ml 100 ml Intake Oral 474 ml 100 ml # Voids 1 2D Echo: LVEF 55%, Mild LVH, RVSP 31 mmHg. Microbiology Date/Time Source Procedure Growth Status 10/02/18 16:20 Sputum Gram Stain - Final Complete 10/02/18 16:20 Sputum Sputum Culture - Final NORMAL UPPER RESPIRATORY ALLISON PRESENT Complete Objective HEENT: Atraumatic and normocephalic. Anicteric. Pupils are equal, round, and reactive to light and accommodation. Extraocular muscle intact. NECK: JVP less than 5 centimeter. No carotid bruit. Carotid upstrokes 2+ bilaterally. CARDIOVASCULAR: Normal S1, S2. Regular rate and rhythm. No murmurs, gallops, or rubs. LUNGS: diminished BS in both lungs. ABDOMEN: Soft, nontender, nondistended. No hepatosplenomegaly. Positive bowel sounds. EXTREMITIES: No evidence of edema, clubbing, or cyanosis. Valentin Cristobal MD Oct 04, 2018 22:32
--- NOTE | 2018-10-07 14:29 | Discharge Summary ---
Discharge Summary Discharge Summary _ DATE OF ADMISSION: 10/01/2018 DATE OF DISCHARGE: 10/04/2018 REASON FOR ADMISSION: 33 years old male with past medical history of asthma, current smoker and marijuana user, presented with several days of shortness of breath and wheezing. Patient felt feverish but denied documented fever or chills. Patient did not have any inhalers at home. Upon evaluation patient had low-grade fever was tachypneic . Pulse oximetry was stable on room air. Laboratory workup revealed mild leukocytosis WBC 11.4 , stable electrolytes, pro BNP 247. Chest x-ray revealed no acute cardiopulmonary pathology. Patient admitted with diagnoses of asthma with acute exacerbation, upper respiratory infection/bronchitis CONSULTANTS: cone tender Dr. Cristobal pulmonary Dr. Hill quality consultant Dr. Lam infectious disease Dr. Zavaleta [facility] COURSE: Patient admitted and started on intravenous steroids. Patient started on nebulizing therapy was bronchodilator around the clock and as needed. Supplemental oxygen was on board as needed to keep pulse oximetry above 92%. Patient started on empiric antibiotic. Influenza screen test was negative , and sputum culture was negative. ID specialist followed. Patient was on routine on dose of Mucinex and as needed Robitussin syrup. DVT prophylaxis with heparin and ambulation provided. Patient started on nicotine patch. Patient was counseled on smoking cessation and abstinence from marijuana. Patient noted to have leukocytosis next day with trend up -16, likely reactive due to steroids. Intravenous steroids changed to oral steroids. Volumes and cardiorenal parameters were closely monitored. Magnesium was replaced. Slug Press Operator recommended outpatient pulmonary evaluation with pulmonary function test. Patient started on Breo and Ventolin as needed inhalers, prescription provided by event specialist food demonstrator upon discharge along with tapering dose of oral steroid to complete at home. Patient to follow-up with event specialist food demonstrator in 1 to 2 weeks. Family Practice Physician followed for sinus tachycardia , which was likely secondary to underlying asthma exacerbation. Sinus tachycardia resolved. No need for AV zac agents as per cone tender. Lipid panel revealed evidence of dyslipidemia with total cholesterol 212, LDL 138 and HDL high -71. Patient was counseled on cardiac low-fat diet and therapeutic life style changes. Patient may need to start statin if no improvement in lipid profile in 3 months. Livestock Judging Coach followed for acute renal failure. Creatinine with trend up to 1.4 Patient was given gentle IV fluids. Urine toxicology screen was ordered, but patient did not provide sample. Patient will need outpatient follow-up with primary care provider for follow- up with renal parameters , and to avoid nephrotoxic Fever resolved, patient clinically improved , no wheezing , no shortness of breath, pulse oximetry stable on room air. Patient was discharged home. FINAL DIAGNOSES Asthma with acute exacerbation Upper respiratory infection / bronchitis Leukocytosis Tobacco user Marijuana user Hyperlipidemia Hypomagnesemia Acute renal failure DISCHARGE MEDICATIONS: See Medication Reconciliation list. DISCHARGE INSTRUCTIONS: Patient was discharged home. Follow up with primary care provider in one week. I have been assigned to dictate discharge summary for this account. I was not involved in the patient's management. Jane Arenas NP Oct 07, 2018 14:29
== END 2018-10-04 17:40 | disposition home or self-care (01) | DRG 141 ==
LOC: EMR 09:34 → EDBEDREQ 12:00 → 2E 12:19 → EDBEDREQ 13:28 → 2E 15:58 → 3E 10-03 10:45
DX: J45.901 Unspecified asthma with (acute) exacerbation (principal); N17.9 Acute kidney failure, unspecified; J40 Bronchitis, not specified as acute or chronic; F12.90 Cannabis use, unspecified, uncomplicated; J06.9 Acute upper respiratory infection, unspecified; F17.200 Nicotine dependence, unspecified, uncomplicated; E78.5 Hyperlipidemia, unspecified; E83.42 Hypomagnesemia; Z88.0 Allergy status to penicillin; D64.9 Anemia, unspecified
CPT/HCPCS: 36415; 71045; 80053; 80061; 81003; 82550; 82977; 83735; 83880; 84100; 84484; 84550; 85007; 85025; 85379; 86140; 86710; 87070; 87205; 93005; 93306; 94640; 94664; 94760; 96361; 96365; 96375; 99284; J7620

== ENCOUNTER 2018-11-17 18:38 | Emergency (ER) | payer SELFPAY ==
[~2018-11-17] VITALS: Ht 193 cm; Wt 104.3 kg
[~2018-11-17 18:38] MED LIST: NKM
[2018-11-17 18:59] VITALS: BP 163/85
[2018-11-17] MEDS ORDERED: Tetanus/Diptheria/Pertussis Vaccine 0.5ml Syr IM ONE (19:00)
[2018-11-17] MEDS ORDERED: Lidocaine 2% Visc 15ml soln ORAL ONE (19:00)
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
[2018-11-17] MEDS ORDERED: Lidocaine 1% 10mg/ml/Epi 0.005mg/ml 30ml vial INJ ONE (20:00)
[2018-11-17] MEDS ORDERED: NORCO 5-325 TA1 EACH ORAL (20:55)
[2018-11-17] MEDS ORDERED: Acetaminophen 500mg (ES) tab ORAL ONE (21:00)
[2018-11-17 21:07] VITALS: BP 143/82
--- NOTE | 2018-11-17 21:07 | NUR ---
ED Nurse Note: patient is discharged after being cleared by ERMD. patient is alert and oriented x4, ambulatory with a steady gait, VSS. patient acknowledged the need to follow up with PMD within a week if symptoms dont improve, patients prescription in hand, ID band removed
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
== END 2018-11-17 21:05 | disposition home or self-care (01) ==
LOC: EMR 19:16
DX: S02.92XA Unspecified fracture of facial bones, initial encounter for closed fracture (principal); S01.81XA Laceration without foreign body of other part of head, initial encounter; S01.511A Laceration without foreign body of lip, initial encounter; W22.8XXA Striking against or struck by other objects, initial encounter; Y92.89 Other specified places as the place of occurrence of the external cause; J45.909 Unspecified asthma, uncomplicated; Z23 Encounter for immunization; Z88.0 Allergy status to penicillin
CPT/HCPCS: 70450; 71250; 72125; 74176; 90471; 90715; 99284

== ENCOUNTER 2018-11-26 12:46 | Emergency (ER) | payer SELFPAY ==
[~2018-11-26] VITALS: Ht 193 cm; Wt 113.4 kg
[~2018-11-26 12:46] MED LIST changes: +NORCO 5-325 TA1 EACH ORAL
[2018-11-26] MEDS ORDERED: ALBUTEROL SULF8.5 GM INH (13:03)
--- NOTE | 2018-11-26 13:34 | Emergency Room Report ---
History of Present Illness General Chief Complaint: Wound Recheck/Suture Removal Source: Patient Present Illness HPI 33-year-old male patient presents the ER requesting suture removal. Reports lacerations to face and lip s/p trauma 1 week ago. Reports feeling well. States has been taking [place] for pain. Patient reports he was seen here a week ago. Denies bleeding or drainage. Denies complications. States he was not prescribed antibiotics previously. Reports feeling well. Denies other aggravating or relieving factors. Reports she has been using Aquaphor on the affected areas. Allergies: Coded Allergies: PENICILLINS (Verified Allergy, Unknown, swelling, sob, 11/26/18) Patient History Past Medical History: see triage record Reviewed Nursing Documentation: PMH: Agreed; PSxH: Agreed Nursing Documentation-PMH Past Medical History: No History, Except For Hx Cardiac Problems: No Hx Asthma: Yes Hx Cancer: No Hx Gastrointestinal Problems: No Hx Neurological Problems: No Review of Systems All Other Systems: negative except mentioned in HPI Physical Exam Vital Signs Date Time Temp Pulse Resp B/P (MAP) Pulse Ox O2 Delivery O2 Flow Rate FiO2 11/26/18 13:01 97.9 87 16 128/85 97 Sp02 EP Interpretation: reviewed, normal General Appearance: well appearing, no apparent distress, alert, GCS 15, non- toxic Head: normocephalic, atraumatic Eyes: bilateral eye normal inspection, bilateral eye PERRL ENT: hearing grossly normal, normal pharynx, no angioedema, normal voice, uvula midline, moist mucus membranes Neck: full range of motion Respiratory: lungs clear, normal breath sounds, no rhonchi, no respiratory distress, no accessory muscle use, no wheezing, speaking full sentences Cardiovascular #1: regular rate, rhythm, no edema Psychiatric: mood/affect normal Skin: other - Right religion: Healing 2 cm laceration, scabbing present, no surrounding erythema or edema, no active bleeding; lower lip, healing laceration , no surrounding erythema or edema, no drainage Medical Decision Making Diagnostic Impression: Primary Impression: Encounter for removal of sutures ER Course Pt. presents to the ED requesting wound check an suture removal from face and lip. Ddx considered but are not limited to cellulitis, abscess, wound check, folliculitis, suture removal. Vital signs: are WNL, pt. is afebrile ER COURSE: Wound has no signs of infection., no erythema, edema, TTP, sensation is intact to light touch. Removed 3 superficial sutures from right temporal region and 1 suture from the exterior lower lip. Patient tolerated procedure well without complications. Remaining sutures in inner lip are absorbable, do not need to be removed. Apply Neosporin to wound to reduce appearance of scar. ER precautions given. DISCHARGE: Patient instructed to continue with medications and followup instructions per initial ER provider instructions. At this time pt. is stable for d/c to home. Patient resting comfortably, in no acute distress, nontoxic appearing. Will provide printed patient care instructions and any necessary prescriptions. Care plan and follow up instructions have been discussed with the patient prior to discharge. Patient instructed to follow-up with primary care provider for further treatment and referral. Patient questions asked and answered. ER precautions given. Patient instructed to return to ER immediately for any new or worsening of symptoms including but not limited to fever, worsening of pain symptoms. - Please note that this Emergency Department Report was dictated using [employer] specialist technology software, occasionally this can lead to erroneous entry secondary to interpretation by the dictation equipment. Last Vital Signs Date Time Temp Pulse Resp B/P (MAP) Pulse Ox O2 Delivery O2 Flow Rate FiO2 11/26/18 13:01 97.9 87 16 128/85 97 Status: improved Disposition: HOME, SELF-CARE Condition: Stable Patient Instructions: Suture Removal, Care After, Wound Check Additional Instructions: Followup with primary care provider in 3 -5 days. Apply Neosporin to help reduce the appearance of scar. Take medications as directed. Patient questions asked and answered. ER precautions given, patient instructed to return to ER immediately for any new or worsening of symptoms. Will Gomes Nov 26, 2018 13:34
--- NOTE | 2018-11-26 13:38 | NUR ---
ED Nurse Note: PT CAME INTO THE ER DUE TO SUTURE REMOVAL FROM LOWER LIP AND LEFT HEAD. NO ACUTE DISTRESS NOTED. DENIES PAIN. A+ O X 4. AMBULATORY. SKIN WARM TO TOUCH.
[2018-11-26 13:39] VITALS: BP 125/87
--- NOTE | 2018-11-26 13:46 | NUR ---
ED Nurse Note: Discharge instructions given to pt. Answered all questions. Verbalized understanding. No acute distress noted. ID band removed. Left ER w/ steady gait and all belongings.
[2018-11-26 14:11] VITALS: BP 110/65
== END 2018-11-26 13:46 | disposition home or self-care (01) ==
LOC: EMR 13:31
DX: S01.81XD Laceration without foreign body of other part of head, subsequent encounter (principal); X58.XXXD Exposure to other specified factors, subsequent encounter; Z48.02 Encounter for removal of sutures; J45.909 Unspecified asthma, uncomplicated; Z88.0 Allergy status to penicillin
CPT/HCPCS: 99281